=== PATIENT | male | born 1995 | race Caucasian/White ===

== ENCOUNTER 2021-08-08 23:12 | Emergency (ER) | payer MEDICAID ==
[~2021-08-08] VITALS: Ht 167.6 cm; Wt 83.9 kg
[2021-08-08 23:15] VITALS: BP 135/73
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
--- NOTE | 2021-08-08 23:19 | NUR ---
PT RAMOS PENAS. TAKEN TO BED 4
--- NOTE | 2021-08-08 23:24 | NUR ---
[place] [facility] AT BEDSIDE
--- NOTE | 2021-08-08 23:26 | NUR ---
PD AT BEDSIDE.
--- NOTE | 2021-08-08 23:47 | NUR ---
BLOOD SAMPLES COLLECTED AND SENT TO LAB.
[2021-08-09] MEDS ORDERED: ONDANSETRON 4 MG/2 ML VIAL IVP ONE (00:30)
[2021-08-09] MEDS ORDERED: MORPHINE SULFATE 2 MG/ML SYR IVP ONE (00:30)
[2021-08-09] MEDS ORDERED: ceFAZolin 1,000 MG VIAL IM ONE (00:30)
[2021-08-09 00:35] LABS: BASOPHILS % (AUTO) 0.2 % (0.0-2.0); EOSINOPHILS # (AUTO) 0.1 K/uL (0-0.4); EOSINOPHILS % (AUTO) 0.9 % (0.0-4.0); HEMATOCRIT 45.2 % (36-52); MEAN CORPUSCULAR HEMOGLOBIN 31 pg (27-31); MEAN CORPUSCULAR HGB CONC 35 g/dL (33-37); MEAN CORPUSCULAR VOLUME 88.2 fL (80-94); MONOCYTES # (AUTO) 0.5 K/uL (0.8-1.0); NEUTROPHILS # (AUTO) 6.2 K/uL (1.8-7.7); NEUTROPHILS % (AUTO) 69.9 % (42.2-75.2); PLATELET COUNT (AUTO) 237 K/uL (140-450); RED BLOOD CELL COUNT(AUTO) 5.13 MIL/uL (4.20-6.10); RED CELL DISTRIBUTION WIDTH 11.9 % (11.6-13.7); WHITE BLOOD COUNT (AUTO) 8.9 K/uL (4.8-10.8)
--- NOTE | 2021-08-09 00:50 | NUR ---
PT REPORTS HE WILL THINK ABOUT GETTING THE ANCEF AND TDAP AT THIS TIME. WILL LET NURSE KNOW IF HE DECIDES TO RECEIVE THE MEDICATION/VACCINATION.
--- NOTE | 2021-08-09 00:57 | NUR ---
PT TO CT VIA [facility].
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
--- NOTE | 2021-08-09 01:27 | NUR ---
PT REFUSED ANCEF AND TDAP. PT HAS BEEN EDUCATED ON MEDICATION USES. PT REFUSES MEDS/VACC. ERMD MADE AWARE.
--- NOTE | 2021-08-09 01:27 | NUR ---
Jacob yates in EDM - 08/09/21 at 0501 by MEDBOBBIK PT REFUSED ANCEF AND TDAP. PT HAS BEEN EDUCATED ON MEDICATION USES. PT REFUSES MEDS/VACC.
[2021-08-09 01:31] LABS: ALBUMIN 4.2 g/dL (3.4-5.0); ANION GAP 17.1 (8-16); CARBON DIOXIDE 22.6 mmol/L (21-32); CREATININE 1.1 mg/dL (0.6-1.3); POTASSIUM 3.7 mmol/L (3.5-5.1); TOTAL BILIRUBIN 0.5 mg/dL (0.0-1.0)
--- NOTE | 2021-08-09 03:26 | NUR ---
PT AT CT VIA [facility] .
--- NOTE | 2021-08-09 03:36 | NUR ---
PT REPORTS FEELING OVERALL BETTER. VSS.
[2021-08-09] MEDS ORDERED: IBUP-2218 PO (04:51)
[2021-08-09] MEDS ORDERED: NEOMYCIN/POLYMYXIN/BACITRACIN 0.9 GM/1 PKT TP ONE (05:00)
--- NOTE | 2021-08-09 05:13 | NUR ---
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 PER EMELY SHE WILL BE SENDING AN UBER TO HAVE PATIENT TAKEN HOME. PT MADE AWARE.
[2021-08-09 05:28] VITALS: BP 120/63
== END 2021-08-09 05:28 | disposition home or self-care (01) ==
LOC: MED 23:12
DX: S09.90XA Unspecified injury of head, initial encounter (principal); S59.912A Unspecified injury of left forearm, initial encounter; S39.91XA Unspecified injury of abdomen, initial encounter; Z79.899 Other long term (current) drug therapy; X99.8XXA Assault by other sharp object, initial encounter; Y93.01 Activity, walking, marching and hiking; Y92.89 Other specified places as the place of occurrence of the external cause; Y99.8 Other external cause status
CPT/HCPCS: 36415; 70450; 71260; 72125; 73080; 73090; 74177; 80053; 85025; 96374; 96375; 99285; J2270; J2405; Q9967; 90715; J0690

== ENCOUNTER 2021-08-13 14:02 | Emergency (ER) | payer MEDICAID ==
[~2021-08-13] VITALS: Ht 165.1 cm; Wt 85.3 kg
[~2021-08-13 14:02] MED LIST: IBUP-2218 PO
[2021-08-13 14:13] VITALS: BP 130/77
--- NOTE | 2021-08-13 14:20 | NUR ---
PT AMBULATED TO ER BED 5
[2021-08-13] MEDS ORDERED: BACITRACIN OINT 500 UNITS/GM PKT TP ONE (14:29)
--- NOTE | 2021-08-13 14:29 | NUR ---
CHRISTIE ALEXANDER AT BEDSIDE EVALUATING PT
[2021-08-13] MEDS ORDERED: BACI1PAC6 TP (14:36)
[2021-08-13 14:48] VITALS: BP 130/77
--- NOTE | 2021-08-13 14:48 | NUR ---
Patient discharged with v/s stable. Written and verbal after care instructions given and explained with teachback. Patient alert, oriented and verbalized understanding of instructions. Ambulatory with steady gait. All questions addressed prior to discharge. ID band removed. Patient advised to follow up with PMD. Rx of BACITRACIN given. Patient educated on indication of medication including possible reaction and side effects. Opportunity to ask questions provided and answered.
== END 2021-08-13 14:48 | disposition home or self-care (01) ==
LOC: MED 14:02
DX: S51.812D Laceration without foreign body of left forearm, subsequent encounter (principal); Z79.899 Other long term (current) drug therapy; X58.XXXD Exposure to other specified factors, subsequent encounter
CPT/HCPCS: 99282